=== PATIENT | female | born 1975 | race Caucasian/White ===

== ENCOUNTER 2016-10-11 15:36 | Emergency (ER) | payer SELFPAY ==
[~2016-10-11] VITALS: Ht 167.6 cm; Wt 50.0 kg
[~2016-10-11 15:36] MED LIST: OCUF0.3D OD
[2016-10-11 15:37] VITALS: BP 122/58; PULSE 90; RESP 16; TEMP 98; O2SAT 98
--- NOTE | 2016-10-11 15:55 | PD ---
Physical Exam Date Seen by Provider: Oct 11, 2016 Time Seen by Provider: 15:53 Narrative 41 y/o female with pain to the right 4th and 5th fingers and lateral hand over the past several days. Patient denies nubness. Denies specific injury. No Wrist, elbow, or shoulder or neck pain. pain 5/10. worse with movement. X-ray right hand ordered. V/S stable Waiting bed placement. Data Data Last Documented VS Vital Signs Date Time Temp Pulse Resp B/P Pulse Ox O2 Delivery O2 Flow Rate FiO2 10/11/16 15:37 98.0 90 16 122/58 98 Room Air [facility] Medical Record Reviewed: Yes Supervised Visit with FAWAD: Yes Condition: Stable Alex Do Oct 11, 2016 15:55
--- NOTE | 2016-10-11 16:38 | RADRPT ---
EXAM DATE/TIME: 10/11/2016 16:10 [facility] COMPARISON: No previous studies available for comparison. INDICATIONS : Right hand pain and stiffness on medial side. MEDICAL HISTORY : None. SURGICAL HISTORY : None. ENCOUNTER: Initial ACUITY: 2 days PAIN SCORE: 8/10 LOCATION: Right hand. FINDINGS: Three view examination of the right hand demonstrates no soft tissue swelling, dislocation, or fractu re. The carpal bones appear intact. The interphalangeal and metacarpophalangeal joints are intact. Bony mineralization is normal. CONCLUSION: Negative exam. Michael Crowell MD on October 11, 2016 at 16:36 Board Certified Radiologist. This report was verified electronically.
--- NOTE | 2016-10-11 17:14 | PD ---
HPI Chief Complaint: Pain: Acute or Chronic Time Seen by Provider: 17:13 Travel History International Travel<30 days: No Contact w/Intl Traveler<30days: No Traveled to known affect area: No History of Present Illness HPI 41-year-old female presents to the emergency Department with complaint of right hand pain and fourth and fifth finger pain since yesterday. Unknown injury. Denies wrist pain. Denies paresthesias, loss of sensation to the affected extremity. Pain is worse with movement and palpation. Reports edema to the fifth metatarsal region that has improved since this morning. Has not taken any medications or tried any treatments to alleviate her symptoms. No known allergies. Denies fever, chills, nausea, vomiting. No other medical complaints. No other modifying factors or associated signs and symptoms. PFSH Past Medical History Asthma: Yes (H/O) Immunizations Current: Yes ?: Not : 1 Para: 1 Miscarriage: 0 : 0 Tubal Ligation: Yes Social History Alcohol Use: Yes (Occ) Tobacco Use: Yes Substance Use: No Allergies-Medications (Allergen,Severity, Reaction): Coded Allergies: No Known Allergies (Verified , 10/11/16) Reported Meds & Prescriptions Reported Meds & Active Scripts Active Ibuprofen 800 Mg Tab 800 Mg PO Q6HR PRN Review of Systems Except as stated in HPI: all other systems reviewed are Neg Physical Exam Narrative GENERAL: Well-nourished, well-developed female patient, in no acute distress; afebrile, nontoxic-appearing SKIN: Warm and dry. HEAD: Atraumatic. Normocephalic. EYES: Pupils equal and round. No scleral icterus. No injection or drainage. ENT: Mucosa pink and moist. Airway patent. NECK: Trachea midline. CARDIOVASCULAR: Regular rate. RESPIRATORY: No accessory muscle use. GASTROINTESTINAL: Flat. MUSCULOSKELETAL: Right hand at the fifth metacarpal region with very mild edema and without erythema, warmth to touch; no obvious deformity; area is with tenderness on palpation; fingers are with full range of motion and sensory intact. Right wrist is nontender and with full range of motion and without erythema or edema. Right upper extremity supple nontender 2+ radial pulse and sensory intact and without erythema or edema. No obvious deformities. No clubbing. No cyanosis. NEUROLOGICAL: Awake and alert. Oriented 3. No obvious cranial nerve deficits. Motor grossly within normal limits. Normal speech. PSYCHIATRIC: Appropriate mood and affect; insight and judgment normal. Data Data Last Documented VS Vital Signs Date Time Temp Pulse Resp B/P Pulse Ox O2 Delivery O2 Flow Rate FiO2 10/11/16 15:37 98.0 90 16 122/58 98 Room Air Orders Hand, Complete ([id number]) (10/11/16 15:55) Splint Or Brace Apply/Monitor (10/11/16 17:25) [facility] Medical Decision Making Medical Screen Exam Complete: Yes Emergency Medical Condition: Yes Medical Record Reviewed: Yes Differential Diagnosis Contusion, sprain, fracture, carpal tunnel syndrome Narrative Course 41-year-old female with right hand pain at the fifth metatarsal area. The area is mildly edematous without erythema or warmth to touch. Patient has full range of motion of all fingers and sensory intact. Unknown injury. Right hand x-ray is unremarkable with no acute findings. I offered the patient a nonnarcotic while in the ER and she declined. Right hand Ethan bandage for support. Ibuprofen prescribed for home. Patient verbalizes understanding and agreement with treatment plan. Patient is medically cleared and stable for discharge. Discussed reasons to return to the emergency department. Instructed patient to follow up with primary care provider. Patient agrees with treatment plan. The patients vital signs are stable and the patient is stable for outpatient follow-up and treatment. Patient discharged home, stable and in no acute distress. Diagnosis Primary Impression: Right hand pain Referrals: Primary Care Physician Patient Instructions: General Instructions Departure Forms: Tests/Procedures, Work Release Enter return to work date: Oct 13, 2016 Additional Instructions: Tylenol or ibuprofen as directed and as needed to reduce pain Rest, ice, compress, and elevate extremity to decrease pain and inflammation Ethan wrap for support Avoid aggravating activity; increase activity as tolerated Follow-up with primary care provider Return to the emergency department immediately with worsening symptoms Med/Other Pt SpecificInfo: Prescription(s) given Scripts Ibuprofen 800 Mg [id number] Mg PO Q6HR PRN (PAIN) #30 TAB Ref 0 Prov:Jillian Lynne 10/11/16 Disposition: 01 DISCHARGE HOME Condition: Stable Jillian Lynne Oct 11, 2016 17:13
[2016-10-11] MEDS ORDERED: IBUP800T23 PO (17:27)
== END 2016-10-11 17:40 | disposition home or self-care (01) ==
LOC: NEPK 15:36
DX: M79.641 Pain in right hand (principal); J45.909 Unspecified asthma, uncomplicated; Z72.0 Tobacco use
CPT/HCPCS: 73130; 99283

== ENCOUNTER 2017-02-21 16:03 | Emergency (ER) | payer SELFPAY ==
[~2017-02-21] VITALS: Ht 165.1 cm; Wt 70.0 kg
[~2017-02-21 16:03] MED LIST changes: +IBUP800T23 PO; -OCUF0.3D OD
[2017-02-21 16:06] VITALS: BP 116/81; PULSE 77; RESP 17; TEMP 97.6; O2SAT 100
[2017-02-21] MEDS ORDERED: SODIUM CHLOR 0.9% 1000 ML INJ 1,000 ML IV ONE (16:31)
--- NOTE | 2017-02-21 16:37 | PD ---
HPI Chief Complaint: Dizziness Time Seen by Provider: 16:20 Travel History International Travel<30 days: No Contact w/Intl Traveler<30days: No Traveled to known affect area: No History of Present Illness HPI Patient comes in complaining of dizziness that began last night. Patient reports symptoms started off intermittent, however, her now more constant. Patient reports associated nausea and vomiting with this. Reports vomiting is nonbilious and nonbloody. Patient denies any change in bowel or bladder. Patient reports intermittent headaches with this. Patient denies anything like this in the past. Patient states that light, looking up, going from sitting to standing, and turning her head too quickly makes symptoms worse. Patient denies anything making it better. Denies any chest pain, shortness of breath, fevers, neck pain, headache, change in vision, weakness, or abdominal pain. PFSH Past Medical History Asthma: Yes (H/O) Diminished Hearing: No Immunizations Current: Yes Tetanus Vaccination: < 5 Years Influenza Vaccination: No ?: Not LMP: 02/02/17 : 1 Para: 1 Miscarriage: 0 : 0 Tubal Ligation: Yes Social History Alcohol Use: Yes (rare) Tobacco Use: Yes (1/2 ppd) Substance Use: No Allergies-Medications (Allergen,Severity, Reaction): Coded Allergies: No Known Allergies (Verified , 02/21/17) Reported Meds & Prescriptions Reported Meds & Active Scripts Active Meclizine (Meclizine HCl) 25 Mg Tab 25 Mg PO TID PRN Review of Systems Except as stated in HPI: all other systems reviewed are Neg Physical Exam Narrative GENERAL: Well-developed, well nourished, in no acute distress, and non-ill appearing. SKIN: Focused skin assessment warm and dry. HEAD: Atraumatic. Normocephalic. EYES: Pupils equal and round. EOMI. No scleral icterus. No injection or drainage. ENT: No nasal bleeding or discharge. Mucous membranes pink and moist. NECK: Trachea midline. Supple. No nuclear rigidity. CARDIOVASCULAR: Regular rate and rhythm. No murmur appreciated. RESPIRATORY: No accessory muscle use. No respiratory distress. Clear to auscultation. Breath sounds equal bilaterally. GASTROINTESTINAL: Abdomen soft, non-tender, nondistended, and no guarding. Hepatic and splenic margins not palpable. No pulsatile mass. MUSCULOSKELETAL: No obvious deformities. No clubbing. No cyanosis. No edema. Full range of motion. NEUROLOGICAL: Awake and alert. No obvious cranial nerve deficits. Motor grossly within normal limits. Normal speech. PSYCHIATRIC: Appropriate mood and affect; insight and judgment normal. Data Data Last Documented VS Vital Signs Date Time Temp Pulse Resp B/P (MAP) Pulse Ox O2 Delivery O2 Flow Rate FiO2 02/21/17 18:16 02/21/17 17:38 56 16 100 Room Air 02/21/17 16:06 97.6 Orders Orders Electrocardiogram (02/21/17 ) Basic Metabolic Panel (Bmp) (02/21/17 16:31) Complete Blood Count With Diff (02/21/17 16:31) Magnesium (Mg) (02/21/17 16:31) Act Partial Throm Time (Ptt) (02/21/17 16:31) Prothrombin Time / Inr (Pt) (02/21/17 16:31) Urinalysis - C+S If Indicated (02/21/17 16:31) Ct Brain W/O Iv Contrast(Rout) (02/21/17 16:31) Ecg Monitoring (02/21/17 16:31) Iv Access Insert/Monitor (02/21/17 16:31) Oximetry (02/21/17 16:31) Meclizine (Antivert) (02/21/17 16:45) Ondansetron Inj (Zofran Inj) (02/21/17 16:45) Sodium Chloride 0.9% Flush (Ns Flush) (02/21/17 16:45) Sodium Chlor 0.9% 1000 Ml Inj (Ns 1000 M (02/21/17 16:31) Orthostatic Vital Signs (02/21/17 16:31) Mandatory Outpatient Referral (02/21/17 18:02) Labs Laboratory Tests Test 02/21/17 16:50 White Blood Count 7.6 TH/MM3 Red Blood Count 4.72 MIL/MM3 Hemoglobin 14.8 GM/DL Hematocrit 43.3 % Mean Corpuscular Volume 91.7 FL Mean Corpuscular Hemoglobin 31.3 PG Mean Corpuscular Hemoglobin Concent 34.1 % Red Cell Distribution Width 12.6 % Platelet Count 243 TH/MM3 Mean Platelet Volume 8.6 FL Neutrophils (%) (Auto) 56.6 % Lymphocytes (%) (Auto) 30.2 % Monocytes (%) (Auto) 11.4 % Eosinophils (%) (Auto) 1.0 % Basophils (%) (Auto) 0.8 % Neutrophils # (Auto) 4.3 TH/MM3 Lymphocytes # (Auto) 2.3 TH/MM3 Monocytes # (Auto) 0.9 TH/MM3 Eosinophils # (Auto) 0.1 TH/MM3 Basophils # (Auto) 0.1 TH/MM3 CBC Comment DIFF FINAL Differential Comment Prothrombin Time 11.3 SEC Prothromb Time International Ratio 1.0 RATIO Activated Partial Thromboplast Time 25.0 SEC Urine Color LIGHT-YELLOW Urine Turbidity CLEAR Urine pH 8.5 Urine Specific Orange 1.004 Urine Protein NEG mg/dL Urine Glucose (UA) NEG mg/dL Urine Ketones NEG mg/dL Urine Occult Blood NEG Urine Nitrite NEG Urine Bilirubin NEG Urine Urobilinogen LESS THAN 2.0 MG/DL Urine Leukocyte Esterase NEG Urine RBC LESS THAN 1 /hpf Urine WBC 2 /hpf Urine Squamous Epithelial Cells 1 /hpf Urine Bacteria RARE /hpf Microscopic Urinalysis Comment CULT NOT INDICATED Blood Urea Nitrogen 6 MG/DL Creatinine 0.89 MG/DL Random Glucose 92 MG/DL Calcium Level 9.6 MG/DL Magnesium Level 1.9 MG/DL Sodium Level 139 MEQ/L Potassium Level 3.8 MEQ/L Chloride Level 108 MEQ/L Carbon Dioxide Level 23.0 MEQ/L Anion Gap 8 MEQ/L Estimat Glomerular Filtration Rate 70 ML/MIN [facility] Medical Decision Making Medical Screen Exam Complete: Yes Emergency Medical Condition: Yes Interpretation(s) EKG reviewed by Dr. Christopher shows sinus bradycardia with ventricular rate of 58. No STEMI. Differential Diagnosis Vertigo, anemia, electrolyte abnormality, dehydration, orthostatic hypotension, UTI, mass, other Narrative Course The patient presented with symptoms of vertigo. The history and exam/evaluation are consistent with peripheral vertigo and not central. After medication patient reports symptoms are worsened with movement and improved with fixation. The cerebellar neurologic exam is completely normal with a normal gait, normal finger to nose bilaterally, no dysdiadochokinesias, and normal heel-alan exam bilaterally. The clinical suspicion, plan of care and management were discussed with the patient and the patient agreed with plan. Patient in no obvious distress upon re-evaluation. All pertinent laboratory/ Radiology result(s) discussed with patient. Discussed patient with Dr. Christopher prior to discharge, who is in agreement with plan of care and disposition. Patient was asked if they wanted to speak to my attending, which the patient did not wish to do at this time. Any questions/concerns in reference to patient diagnosis/condition discussed and clarified prior to patient's discharge. Reinforced sheer importance of close follow up with patient's primary physician or primary care clinic, neurologist, and or ENT. Instructed patient to return to ED immediately, if symptoms return/worsen. Pt showed understanding of above instructions. Further instructions and recommendations were detailed in discharge paperwork. Pt ambulated without difficulty out of ED at discharge. Diagnosis Primary Impression: Vertigo Referrals: Irena Vazquez MD Patient Instructions: General Instructions, Vertigo (ED) Departure Forms: Work Release Enter return to work date: Feb 24, 2017 Additional Instructions: Follow-up with your primary care physician, neurology, and/or ENT this week for further evaluation. Take all medication as prescribed. Return to the emergency department if symptoms get worse. Med/Other Pt SpecificInfo: Prescription(s) given Scripts Meclizine (Meclizine) 25 Mg Tab 25 MG PO TID Y for VERTIGO, #21 TAB 0 Refills Prov: Brenda Christopher MD 02/21/17 Disposition: 01 DISCHARGE HOME Condition: Stable Flavio Bran Feb 21, 2017 16:37
[2017-02-21] MEDS ORDERED: MECLIZINE HCL 25 MG TAB PO ONE (16:45)
[2017-02-21] MEDS ORDERED: ONDANSETRON HCL 4 MG/2 ML VIAL IVP ONE (16:45)
[2017-02-21] MEDS ORDERED: SODIUM CHLORIDE 0.9% FLUSH 10 ML FLUSH IVF PRN (16:45)
[2017-02-21 16:58] LABS: AUTOMATED NEUTROPHIL # 4.3 TH/MM3 (1.8-7.7); BASOPHIL # 0.1 TH/MM3 (0-0.2); BASOPHIL % 0.8 % (0.0-2.0); EOSINOPHIL # 0.1 TH/MM3 (0-0.4); HEMATOCRIT 43.3 % (35.0-46.0); HEMO FLAGS DIFF FINAL; LYMPH % 30.2 % (9.0-44.0); LYMPHOCYTE # 2.3 TH/MM3 (1.0-4.8); MEAN CELL VOLUME 91.7 FL (80.0-100.0); MEAN CORPUSCULAR HEMOGLOBIN 31.3 PG (27.0-34.0); MEAN CORPUSCULAR HGB CONC 34.1 % (32.0-36.0); MONO % 11.4 % (0.0-8.0); NEUT % 56.6 % (16.0-70.0); PLATELET COUNT 243 TH/MM3 (150-450); RED BLOOD COUNT 4.72 MIL/MM3 (4.00-5.30); RED CELL DISTRIBUTION WIDTH 12.6 % (11.6-17.2); WHITE BLOOD COUNT 7.6 TH/MM3 (4.0-11.0)
[2017-02-21 17:02] LABS: BACTERIA, URINE RARE /hpf; BLOOD, URINE NEG (NEG); GLUCOSE,URINE NEG (NEG); KETONE, URINE NEG (NEG); NITRITE,URINE NEG (NEG); PH, URINE 8.5 (5.0-8.5); SQUAMOUS EPITHELIAL CELL URINE 1 /hpf (0-5); URINE COLOR LIGHT-YELLOW (YELLW/STRAW)
[2017-02-21 17:04] LABS: COMMENT (UR) CULT NOT INDICATED; CULTURE IF INDICATED CULT NOT INDICATED
--- NOTE | 2017-02-21 17:07 | RADRPT ---
EXAM DATE/TIME: 02/21/2017 16:49 [facility] COMPARISON: No previous studies available for comparison. INDICATIONS : Dizziness, nausea and vomiting. RADIATION DOSE: 56.35 CTDIvol (mGy) MEDICAL HISTORY : None SURGICAL HISTORY : Tubal ligation. ENCOUNTER: Initial ACUITY: 1 day PAIN SCALE: 0/10 LOCATION: cranial TECHNIQUE: Multiple contiguous axial images were obtained of the head. Using automated exposure control and adj ustment of the mA and/or kV according to patient size, radiation dose was kept as low as reasonably a chievable to obtain optimal diagnostic quality images. DICOM format image data is available electro nically for review and comparison. FINDINGS: CEREBRUM: The ventricles are normal for age. No evidence of midline shift, mass lesion, hemorrhage or acute in farction. No extra-axial fluid collections are seen. POSTERIOR FOSSA: The cerebellum and brainstem are intact. The 4th ventricle is midline. The cerebellopontine angle i s unremarkable. EXTRACRANIAL: The visualized portion of the orbits is intact. SKULL: The calvaria is intact. No evidence of skull fracture. CONCLUSION: Negative noncontrast CT Khoi Yanez MD on February 21, 2017 at 17:03 Board Certified Radiologist. This report was verified electronically.
--- NOTE | 2017-02-21 17:10 | EKG ---
Date Performed: 02/21/2017 Time Performed: 16:21:12 PTAGE: 41 years EKG: SINUS BRADYCARDIA WITH SINUS ARRHYTHMIA NONSPECIFIC T-WAVE ABNORMALITY BORDERLINE ECG NO PREVIOUS TRACING DOCTOR: Jimi Gomez Interpretating Date/Time 02/21/2017 17:08:31
[2017-02-21 17:14] LABS: PROTHROMBIN TIME - PATIENT 11.3 SEC (9.8-11.6)
[2017-02-21 17:17] LABS: MAGNESIUM 1.9 MG/DL (1.5-2.5); POTASSIUM 3.8 MEQ/L (3.5-5.1)
[2017-02-21] MEDS ORDERED: MECL-62 PO (17:32)
[2017-02-21 17:38] VITALS: BP 121/69; PULSE 56; RESP 16; O2SAT 100
== END 2017-02-21 18:32 | disposition home or self-care (01) ==
LOC: NEPE 16:03
DX: R42 Dizziness and giddiness (principal); R51 Headache; R11.2 Nausea with vomiting, unspecified; R00.1 Bradycardia, unspecified; F17.200 Nicotine dependence, unspecified, uncomplicated
CPT/HCPCS: 70450; 80048; 81001; 83735; 85025; 85610; 85730; 93005; 96361; 96374; 99285; J2405; J7030